=== PATIENT | female | born 1960 | race Two or more races ===

== ENCOUNTER 2018-05-02 14:05 | Outpatient (CLI) | payer OTHER | END 2018-05-02 14:16 | disposition home or self-care (01) | LOC: MAMO-SONO 14:05 | DX: Z12.31 Encounter for screening mammogram for malignant neoplasm of breast (principal); N60.12 Diffuse cystic mastopathy of left breast; N60.11 Diffuse cystic mastopathy of right breast; N95.2 Postmenopausal atrophic vaginitis ==

== ENCOUNTER 2019-04-28 10:43 | Outpatient (CLI) | payer OTHER | END 2019-04-28 10:46 | disposition home or self-care (01) | LOC: NUCLEAR 10:43 | DX: M81.0 Age-related osteoporosis without current pathological fracture (principal) ==

== ENCOUNTER 2019-05-18 07:47 | Outpatient (CLI) | payer OTHER | END 2019-05-18 07:49 | disposition home or self-care (01) | LOC: MAMO-SONO 07:47 | DX: Z12.31 Encounter for screening mammogram for malignant neoplasm of breast (principal); Z87.898 Personal history of other specified conditions; N60.12 Diffuse cystic mastopathy of left breast; N60.11 Diffuse cystic mastopathy of right breast ==

== ENCOUNTER 2019-07-31 08:09 | Outpatient (CLI) | payer OTHER | END 2019-07-31 08:11 | disposition home or self-care (01) | LOC: SONOGRAMA 08:09 | DX: E04.2 Nontoxic multinodular goiter (principal) ==

== ENCOUNTER → 2020-05-31 | Outpatient (CLI) | payer OTHER | END | disposition home or self-care (01) | LOC: MAMO-SONO 05-30 09:45 | PROVIDERS: ATTEND Obstetrics & Gynecology Gynecology | DX: Z12.31 Encounter for screening mammogram for malignant neoplasm of breast (principal); N60.12 Diffuse cystic mastopathy of left breast; N60.11 Diffuse cystic mastopathy of right breast ==

== ENCOUNTER 2020-10-02 06:02 | Day surgery (SDC) | payer OTHER ==
[~2020-10-02 06:02] MED LIST: ATORVASTATIN CA10 MG PO; CARAFATE1 GM PO; LEVO-T50 MCG PO
== END 2020-10-02 10:24 | disposition home or self-care (01) ==
LOC: CIR.AMB 06:02 → ADM 09:30 → CIR.AMB 10:24
PROVIDERS: ATTEND Surgery Surgery of the Hand
DX: M65.841 Other synovitis and tenosynovitis, right hand (principal); Z20.822 Contact with and (suspected) exposure to COVID-19